=== PATIENT | female | born 1955 | race Caucasian/White ===

== ENCOUNTER 2016-11-19 08:02 | Day surgery (SDC) | payer OTHER ==
[2016-11-15 10:23] VITALS: BMI 22.2
[2016-11-19] MEDS ORDERED: PROPOFOL 20 ML ONE ×2 (08:11)
[2016-11-19 15:18] VITALS: TEMP 97.8
[2016-11-19 15:25] VITALS: BP 132/70; PULSE 79
== END 2016-11-19 10:30 | disposition home or self-care (01) ==
LOC: FASU-ENDO 08:02 → MERGE 08:02 → FASU-ENDO 10:30
PROVIDERS: ATTEND Internal Medicine Gastroenterology
PROC: 0DJD8ZZ Inspection of Lower Intestinal Tract, Via Natural or Artificial Opening Endoscopic (ICD-10-PCS; principal; 2016-11-19 09:30)
DX: Z12.11 Encounter for screening for malignant neoplasm of colon (principal); K57.30 Diverticulosis of large intestine without perforation or abscess without bleeding; K64.8 Other hemorrhoids